=== PATIENT | male | born 1970 | race African-American/Black ===

== ENCOUNTER 2019-04-01 11:58 | Inpatient (IN) | payer MEDICAID, OTHER ==
[~2019-04-01] VITALS: Ht 172.7 cm; Wt 79.4 kg
[2019-04-01] MEDS ORDERED: MORPHINE SULFATE 4 MG/ML CPJ (NOT FOR IM USE) IV STA (13:12)
[2019-04-01] MEDS ORDERED: ONDANSETRON HCL 4MG/2ML INJ IV STA (13:12)
[2019-04-01] MEDS ORDERED: VANCOMYCIN 1 G PREMIX 200 ML IV ONE (13:15)
[2019-04-01] MEDS ORDERED: SODIUM CHLORIDE 0.9% 1000ML BAG (SEPSIS BOLUS) IV ONE (13:15)
[2019-04-01] MEDS ORDERED: PIPERACILLIN/TAZ 3.375G PREMIX 50 ML IV ONE (13:15)
[2019-04-01 13:33] LABS: HEMATOCRIT. 29.8 % (42.0-52.0); HEMOGLOBIN. 9.2 g/dL (14.0-18.0); MEAN CORPUSCULAR HEMOGLOBIN 23.9 pg (28.0-32.0); MEAN CORPUSCULAR VOLUME 77.7 fL (80.0-94.0); MEAN PLATELET VOLUME 7.6 fl (7.4-10.4); PLATELET 585 x1000/uL (130-400); RED BLOOD CELL COUNT 3.84 mill/uL (4.7-6.1); RED CELL DISTRIBUTION WIDTH 16.7 % (11.6-14.6)
[2019-04-01 13:38] LABS: INR 1.3; PROTHROMBIN TIME 13.5 sec (9.6-11.0)
[2019-04-01 14:10] LABS: PLATELET ESTIMATE INCREASED
[2019-04-01 15:21] LABS: CHLORIDE 96 mEq/L (98-107)
[2019-04-01] MEDS ORDERED: DEXTROSE 50% WATER 50ML SYRINGE IV ONE ×5 (15:44→17:15)
[2019-04-01] MEDS ORDERED: IOHEXOL-350 100 ML BOTTLE ONE (16:49)
[2019-04-01] MEDS ORDERED: DEXTROSE 50% WATER 50ML SYRINGE IV PRN (21:00)
[2019-04-01] MEDS ORDERED: MAGNESIUM/ALUMINUM HYDROXIDE/SIMETHICONE 30ML UDC PO PRN (21:00)
[2019-04-01] MEDS ORDERED: DOCUSATE SODIUM 100MG CAPSULE PO PRN (21:00)
[2019-04-01] MEDS ORDERED: NA PHOS,M-B/NA PHOS,DI-BA ENEMA 118ML PR PRN (21:00)
[2019-04-01] MEDS ORDERED: VANCOMYCIN 1 G PREMIX 200 ML IV SCH (21:00)
[2019-04-01] MEDS ORDERED: ACETAMINOPHEN 650MG SUPP PR PRN (21:00)
[2019-04-01] MEDS ORDERED: GUAIFENESIN 200MG/10ML SUGAR FREE UDC PO PRN (21:00)
[2019-04-01] MEDS ORDERED: ENOXAPARIN 40MG/0.4ML SYR SUBCUT SCH (21:00)
[2019-04-01] MEDS ORDERED: DIPHENHYDRAMINE 50MG/ML VIAL IV PRN (21:00)
[2019-04-01] MEDS ORDERED: CLONIDINE 0.1MG TABLET PO PRN (21:00)
[2019-04-01] MEDS ORDERED: ONDANSETRON HCL 4MG/2ML INJ IV PRN (21:00)
[2019-04-01] MEDS ORDERED: HYDROCODONE/ACETAMINOPHEN 10/325MG TABLET PO PRN (21:00)
[2019-04-01] MEDS ORDERED: HYDROCODONE/APAP 7.5/325MG 1 TAB TABLET PO PRN (21:00)
[2019-04-01] MEDS ORDERED: CEFTRIAXONE 1 G PREMIX 50 ML IV SCH (21:45)
[2019-04-01] MEDS: DEXT 5%/0.9% NACL 1,000 ML IV SCH (22:03)
[2019-04-01 22:14] LABS: CLARITY URINE CLEAR (CLEAR); COLOR URINE YELLOW (YELLOW); KETONES URINE 3+ (NEGATIVE); LEUKOCYTE ESTERASE URINE NEGATIVE (NEGATIVE); NITRITE URINE NEGATIVE (NEGATIVE); OCCULT BLOOD URINE NEGATIVE (NEGATIVE); PROTEIN URINE NEGATIVE (NEGATIVE); SPECIFIC GRAVITY URINE 1.048 (1.005-1.030)
[2019-04-02] VITALS (9 sets, daily range): BP systolic 109–153; BP diastolic 57–75
[2019-04-02 07:17] LABS: BASOPHILS % 0.2 % (0.0-2.0); HEMOGLOBIN. 7.7 g/dL (14.0-18.0); LYMPHOCYTES % 13.9 % (20.0-50.0); MEAN CORPUSCULAR HEMOGLOBIN 23.2 pg (28.0-32.0); MEAN CORPUSCULAR VOLUME 75.1 fL (80.0-94.0); MEAN PLATELET VOLUME 6.4 fl (7.4-10.4); MONOCYTES % 4.3 % (2.0-8.0); NEUTROPHILS % 81.6 % (40.0-76.0); PLATELET 443 x1000/uL (130-400); RED BLOOD CELL COUNT 3.33 mill/uL (4.7-6.1); RED CELL DISTRIBUTION WIDTH 16.4 % (11.6-14.6)
[2019-04-02 07:25] LABS: CHLORIDE 107 mEq/L (98-107)
[2019-04-02 07:35] LABS: HDL CHOLESTEROL 12 mg/dL (40-59)
[2019-04-02 07:38] LABS: LDL CHOLESTEROL 37 mg/dL (5-100)
[2019-04-02] MEDS: INSULIN LISPRO 100 UNITS/ML SUBCUT SCH ×5 (08:16→20:59)
[2019-04-02] MEDS ORDERED: ENOXAPARIN 30MG/0.3ML SYR SUBCUT SCH (10:00)
[2019-04-02] MEDS: BLOOD SUGAR DIAGNOSTIC STRIP TEST SCH ×3 (12:30→20:54)
[2019-04-02] MEDS: DEXT 5%/0.9% NACL 1,000 ML IV SCH (13:40)
[2019-04-02] MEDS: VANCOMYCIN 1 G PREMIX 200 ML IV SCH ×2 (13:42→20:53)
[2019-04-02] MEDS ORDERED: CEFTRIAXONE 1 G PREMIX 50 ML IV SCH (22:00)
[2019-04-03] VITALS (13 sets, daily range): BP systolic 111–132; BP diastolic 50–76
[2019-04-03] MEDS: ACETAMINOPHEN 650MG/20.3ML UDC GT PRN ×2 (00:47→11:25)
[2019-04-03] MEDS: DEXT 5%/0.9% NACL 1,000 ML IV SCH ×2 (03:56→15:42)
[2019-04-03] MEDS: VANCOMYCIN 1 G PREMIX 200 ML IV SCH (03:56)
[2019-04-03] MEDS: BLOOD SUGAR DIAGNOSTIC STRIP TEST SCH ×4 (07:48→21:00)
[2019-04-03] MEDS: INSULIN LISPRO 100 UNITS/ML SUBCUT SCH ×4 (08:00→21:00)
[2019-04-03] MEDS ORDERED: ENOXAPARIN 40MG/0.4ML SYR SUBCUT SCH (09:00)
[2019-04-03 12:09] LABS: BASOPHILS % 0.2 % (0.0-2.0); EOSINOPHILS % 0.2 % (0.0-5.0); HEMATOCRIT. 22.9 % (42.0-52.0); HEMOGLOBIN. 7.2 g/dL (14.0-18.0); LYMPHOCYTES % 14.4 % (20.0-50.0); MEAN CORPUSCULAR HEMOGLOBIN 23.5 pg (28.0-32.0); MEAN CORPUSCULAR VOLUME 75.2 fL (80.0-94.0); MEAN PLATELET VOLUME 6.6 fl (7.4-10.4); MONOCYTES % 6.4 % (2.0-8.0); NEUTROPHILS % 78.8 % (40.0-76.0); PLATELET 384 x1000/uL (130-400); RED BLOOD CELL COUNT 3.04 mill/uL (4.7-6.1); RED CELL DISTRIBUTION WIDTH 16.8 % (11.6-14.6)
[2019-04-03 12:16] LABS: CHLORIDE 108 mEq/L (98-107); CHLORIDE 109 mEq/L (98-107)
[2019-04-03 12:23] LABS: VANCOMYCIN TROUGH 13.5 ug/mL (5.0-10.0)
[2019-04-03] MEDS: SODIUM CHLORIDE 0.9% INJ 3ML FLUSH IVF SCH ×2 (14:20→21:44)
[2019-04-03] MEDS: VANCOMYCIN 1250MG in DEXTROSE 5% WATER 250ML IV SCH ×2 (14:29→21:44)
[2019-04-03] MEDS: CEFTRIAXONE 1 G PREMIX 50 ML IV SCH (21:01)
[2019-04-04] VITALS (12 sets, daily range): BP systolic 133–160; BP diastolic 80–99
[2019-04-04] MEDS: VANCOMYCIN 1250MG in DEXTROSE 5% WATER 250ML IV SCH ×2 (05:54→15:00)
[2019-04-04] MEDS: SODIUM CHLORIDE 0.9% INJ 3ML FLUSH IVF SCH ×2 (05:55→13:56)
[2019-04-04] MEDS: DEXT 5%/0.9% NACL 1,000 ML IV SCH ×2 (05:55→15:06)
[2019-04-04] MEDS: INSULIN LISPRO 100 UNITS/ML SUBCUT SCH ×4 (08:00→21:00)
[2019-04-04] MEDS: BLOOD SUGAR DIAGNOSTIC STRIP TEST SCH ×4 (08:29→21:00)
[2019-04-04 12:37] LABS: BASOPHILS % 0.1 % (0.0-2.0); EOSINOPHILS % 0.3 % (0.0-5.0); HEMATOCRIT. 26.6 % (42.0-52.0); HEMOGLOBIN. 8.2 g/dL (14.0-18.0); LYMPHOCYTES % 12.2 % (20.0-50.0); MEAN CORPUSCULAR HEMOGLOBIN 23.4 pg (28.0-32.0); MEAN PLATELET VOLUME 6.6 fl (7.4-10.4); MONOCYTES % 6.5 % (2.0-8.0); NEUTROPHILS % 80.9 % (40.0-76.0); PLATELET 383 x1000/uL (130-400); RED CELL DISTRIBUTION WIDTH 16.9 % (11.6-14.6)
[2019-04-04 12:54] LABS: CHLORIDE 108 mEq/L (98-107)
[2019-04-04] MEDS: ACETAMINOPHEN 650MG/20.3ML UDC GT PRN (18:27)
[2019-04-04] MEDS: CEFTRIAXONE 1 G PREMIX 50 ML IV SCH (21:03)
[2019-04-05] VITALS (9 sets, daily range): BP systolic 130–153; BP diastolic 68–97
[2019-04-05] MEDS: SODIUM CHLORIDE 0.9% INJ 3ML FLUSH IVF SCH ×4 (00:16→22:39)
[2019-04-05] MEDS: VANCOMYCIN 1250MG in DEXTROSE 5% WATER 250ML IV SCH ×4 (00:21→23:33)
[2019-04-05] MEDS: DEXT 5%/0.9% NACL 1,000 ML IV SCH ×2 (05:51→18:48)
[2019-04-05 06:22] LABS: BASOPHILS % 0.1 % (0.0-2.0); EOSINOPHILS % 0.4 % (0.0-5.0); HEMATOCRIT. 24.8 % (42.0-52.0); HEMOGLOBIN. 7.8 g/dL (14.0-18.0); LYMPHOCYTES % 13.1 % (20.0-50.0); MEAN CORPUSCULAR HEMOGLOBIN 23.9 pg (28.0-32.0); MEAN CORPUSCULAR VOLUME 75.5 fL (80.0-94.0); MEAN PLATELET VOLUME 7.3 fl (7.4-10.4); MONOCYTES % 7.9 % (2.0-8.0); NEUTROPHILS % 78.5 % (40.0-76.0); PLATELET 369 x1000/uL (130-400); RED BLOOD CELL COUNT 3.28 mill/uL (4.7-6.1); RED CELL DISTRIBUTION WIDTH 16.9 % (11.6-14.6)
[2019-04-05 07:12] LABS: CHLORIDE 104 mEq/L (98-107)
[2019-04-05 07:23] LABS: VANCOMYCIN TROUGH 21.3 ug/mL (5.0-10.0)
[2019-04-05] MEDS: BLOOD SUGAR DIAGNOSTIC STRIP TEST SCH ×4 (07:38→21:00)
[2019-04-05] MEDS: INSULIN LISPRO 100 UNITS/ML SUBCUT SCH ×4 (08:00→21:00)
[2019-04-05] MEDS: AMLODIPINE 10MG TABLET PO SCH (18:47)
[2019-04-05] MEDS ORDERED: POTASSIUM CHLORIDE 20MEQ TABLET SR PO NR (20:00)
[2019-04-05] MEDS: CEFTRIAXONE 1 G PREMIX 50 ML IV SCH (22:38)
[2019-04-06] VITALS: BP 131/90
[2019-04-06 04:00] VITALS: BP 153/83
[2019-04-06] MEDS: VANCOMYCIN 1250MG in DEXTROSE 5% WATER 250ML IV SCH ×3 (06:22→21:23)
[2019-04-06] MEDS: SODIUM CHLORIDE 0.9% INJ 3ML FLUSH IVF SCH ×3 (06:22→21:23)
[2019-04-06] MEDS: BLOOD SUGAR DIAGNOSTIC STRIP TEST SCH ×4 (07:50→21:23)
[2019-04-06] MEDS: DEXT 5%/0.9% NACL 1,000 ML IV SCH ×2 (07:56→21:23)
[2019-04-06 08:00] VITALS: BP 147/64
[2019-04-06] MEDS: INSULIN LISPRO 100 UNITS/ML SUBCUT SCH ×4 (08:00→21:00)
[2019-04-06] MEDS: AMLODIPINE 10MG TABLET PO SCH (08:54)
[2019-04-06] MEDS: ASPIRIN 81MG TABLET PO SCH (08:54)
[2019-04-06 12:00] VITALS: BP 146/84
[2019-04-06 16:00] VITALS: BP 140/80
[2019-04-06 20:00] VITALS: BP 158/94
[2019-04-06] MEDS: CEFTRIAXONE 1 G PREMIX 50 ML IV SCH (21:22)
[2019-04-07] VITALS: BP 143/93
[2019-04-07 04:00] VITALS: BP 151/82
[2019-04-07] MEDS: VANCOMYCIN 1250MG in DEXTROSE 5% WATER 250ML IV SCH ×3 (05:22→23:02)
[2019-04-07] MEDS: SODIUM CHLORIDE 0.9% INJ 3ML FLUSH IVF SCH ×3 (05:22→23:03)
[2019-04-07] MEDS: BLOOD SUGAR DIAGNOSTIC STRIP TEST SCH ×4 (07:30→21:00)
[2019-04-07 08:00] VITALS: BP 152/87
[2019-04-07] MEDS: INSULIN LISPRO 100 UNITS/ML SUBCUT SCH ×4 (08:00→23:02)
[2019-04-07] MEDS: ASPIRIN 81MG TABLET PO SCH (09:36)
[2019-04-07] MEDS: AMLODIPINE 10MG TABLET PO SCH (09:36)
[2019-04-07] MEDS: DEXT 5%/0.9% NACL 1,000 ML IV SCH ×2 (09:36→23:03)
[2019-04-07 12:00] VITALS: BP 147/87
[2019-04-07 16:00] VITALS: BP 156/92
[2019-04-07 20:22] VITALS: BP 152/89
[2019-04-07] MEDS: CEFTRIAXONE 1 G PREMIX 50 ML IV SCH (23:01)
[2019-04-08] VITALS (7 sets, daily range): BP systolic 126–160; BP diastolic 76–93
[2019-04-08] MEDS: SODIUM CHLORIDE 0.9% INJ 3ML FLUSH IVF SCH ×3 (06:20→22:00)
[2019-04-08] MEDS: VANCOMYCIN 1250MG in DEXTROSE 5% WATER 250ML IV SCH ×2 (06:20→13:43)
[2019-04-08 07:11] LABS: CHLORIDE 101 mEq/L (98-107)
[2019-04-08] MEDS: INSULIN LISPRO 100 UNITS/ML SUBCUT SCH ×4 (08:00→21:00)
[2019-04-08] MEDS: BLOOD SUGAR DIAGNOSTIC STRIP TEST SCH ×4 (08:06→21:00)
[2019-04-08] MEDS: AMLODIPINE 10MG TABLET PO SCH (08:51)
[2019-04-08] MEDS: ASPIRIN 81MG TABLET PO SCH (08:51)
[2019-04-08] MEDS: DEXT 5%/0.9% NACL 1,000 ML IV SCH (13:32)
[2019-04-08 15:43] LABS: BASOPHILS % 0.6 % (0.0-2.0); EOSINOPHILS % 0.4 % (0.0-5.0); HEMATOCRIT. 24.3 % (42.0-52.0); HEMOGLOBIN. 7.8 g/dL (14.0-18.0); LYMPHOCYTES % 13.2 % (20.0-50.0); MEAN CORPUSCULAR HEMOGLOBIN 23.9 pg (28.0-32.0); MEAN CORPUSCULAR VOLUME 74.1 fL (80.0-94.0); MEAN PLATELET VOLUME 6.9 fl (7.4-10.4); MONOCYTES % 8.1 % (2.0-8.0); NEUTROPHILS % 77.7 % (40.0-76.0); PLATELET 351 x1000/uL (130-400); RED BLOOD CELL COUNT 3.27 mill/uL (4.7-6.1); RED CELL DISTRIBUTION WIDTH 17.2 % (11.6-14.6)
[2019-04-08 16:06] LABS: CHLORIDE 101 mEq/L (98-107)
[2019-04-08] MEDS: ACETAMINOPHEN 650MG/20.3ML UDC GT PRN (17:01)
[2019-04-08] MEDS ORDERED: POTASSIUM CHLORIDE 20MEQ TABLET SR PO NR (17:45)
[2019-04-08] MEDS: CEFTRIAXONE 1 G PREMIX 50 ML IV SCH (21:36)
[2019-04-09] VITALS: BP 120/80
[2019-04-09] MEDS: VANCOMYCIN 1250MG in DEXTROSE 5% WATER 250ML IV SCH ×4 (03:04→21:34)
[2019-04-09] MEDS: DEXT 5%/0.9% NACL 1,000 ML IV SCH ×2 (03:09→15:41)
[2019-04-09 04:00] VITALS: BP 147/99
[2019-04-09] MEDS: BLOOD SUGAR DIAGNOSTIC STRIP TEST SCH ×4 (06:41→20:40)
[2019-04-09] MEDS: SODIUM CHLORIDE 0.9% INJ 3ML FLUSH IVF SCH ×3 (06:45→21:35)
[2019-04-09] MEDS: INSULIN LISPRO 100 UNITS/ML SUBCUT SCH ×4 (06:46→21:00)
[2019-04-09 08:00] VITALS: BP 136/85
[2019-04-09] MEDS: AMLODIPINE 10MG TABLET PO SCH (08:49)
[2019-04-09] MEDS: ASPIRIN 81MG TABLET PO SCH (08:49)
[2019-04-09 12:00] VITALS: BP 133/70
[2019-04-09 16:00] VITALS: BP 147/86
[2019-04-09] MEDS: ACETAMINOPHEN 650MG/20.3ML UDC GT PRN (17:27)
[2019-04-09 20:00] VITALS: BP 125/74
[2019-04-10] VITALS: BP 141/90
[2019-04-10 04:00] VITALS: BP 145/83
[2019-04-10] MEDS: SODIUM CHLORIDE 0.9% INJ 3ML FLUSH IVF SCH ×3 (05:55→21:13)
[2019-04-10] MEDS: VANCOMYCIN 1250MG in DEXTROSE 5% WATER 250ML IV SCH ×3 (05:55→21:12)
[2019-04-10] MEDS: DEXT 5%/0.9% NACL 1,000 ML IV SCH ×2 (05:55→18:17)
[2019-04-10] MEDS: INSULIN LISPRO 100 UNITS/ML SUBCUT SCH ×4 (06:14→21:00)
[2019-04-10] MEDS: BLOOD SUGAR DIAGNOSTIC STRIP TEST SCH ×4 (06:14→21:00)
[2019-04-10 07:33] LABS: CHLORIDE 100 mEq/L (98-107)
[2019-04-10 08:00] VITALS: BP 140/78
[2019-04-10] MEDS: ASPIRIN 81MG TABLET PO SCH (08:48)
[2019-04-10] MEDS: AMLODIPINE 10MG TABLET PO SCH (08:48)
[2019-04-10 12:00] VITALS: BP 134/78
[2019-04-10 16:00] VITALS: BP 120/71
[2019-04-10 20:00] VITALS: BP 120/73
[2019-04-10] MEDS: ACETAMINOPHEN 650MG/20.3ML UDC GT PRN (20:53)
[2019-04-11] VITALS: BP 118/72
[2019-04-11 04:00] VITALS: BP 134/84
[2019-04-11] MEDS: VANCOMYCIN 1250MG in DEXTROSE 5% WATER 250ML IV SCH ×4 (05:14→22:32)
[2019-04-11] MEDS: ACETAMINOPHEN 650MG/20.3ML UDC GT PRN (05:14)
[2019-04-11] MEDS: SODIUM CHLORIDE 0.9% INJ 3ML FLUSH IVF SCH ×3 (06:21→22:33)
[2019-04-11] MEDS: BLOOD SUGAR DIAGNOSTIC STRIP TEST SCH ×4 (07:30→20:23)
[2019-04-11] MEDS: INSULIN LISPRO 100 UNITS/ML SUBCUT SCH ×4 (07:30→20:33)
[2019-04-11 08:00] VITALS: BP 129/78
[2019-04-11] MEDS: AMLODIPINE 10MG TABLET PO SCH (09:30)
[2019-04-11] MEDS: ASPIRIN 81MG TABLET PO SCH (09:30)
[2019-04-11 12:00] VITALS: BP 116/71
[2019-04-11 16:00] VITALS: BP 119/73
[2019-04-11 20:00] VITALS: BP 124/77
[2019-04-12] VITALS: BP 125/76
[2019-04-12 00:50] LABS: BASOPHILS % 0.8 % (0.0-2.0); EOSINOPHILS % 0.7 % (0.0-5.0); HEMATOCRIT. 22.8 % (42.0-52.0); HEMOGLOBIN. 7.2 g/dL (14.0-18.0); LYMPHOCYTES % 18.7 % (20.0-50.0); MEAN CORPUSCULAR HEMOGLOBIN 23.4 pg (28.0-32.0); MEAN CORPUSCULAR VOLUME 73.6 fL (80.0-94.0); MEAN PLATELET VOLUME 6.5 fl (7.4-10.4); MONOCYTES % 6.8 % (2.0-8.0); PLATELET 450 x1000/uL (130-400); RED CELL DISTRIBUTION WIDTH 17.2 % (11.6-14.6)
[2019-04-12 00:56] LABS: CHLORIDE 103 mEq/L (98-107)
[2019-04-12 04:00] VITALS: BP 127/84
[2019-04-12] MEDS: SODIUM CHLORIDE 0.9% INJ 3ML FLUSH IVF SCH ×3 (05:37→22:31)
[2019-04-12] MEDS: VANCOMYCIN 1250MG in DEXTROSE 5% WATER 250ML IV SCH ×3 (05:37→22:24)
[2019-04-12 07:23] LABS: BASOPHILS % 0.7 % (0.0-2.0); EOSINOPHILS % 0.7 % (0.0-5.0); HEMATOCRIT. 24.9 % (42.0-52.0); HEMOGLOBIN. 7.8 g/dL (14.0-18.0); LYMPHOCYTES % 19.8 % (20.0-50.0); MEAN CORPUSCULAR HEMOGLOBIN 23.3 pg (28.0-32.0); MEAN CORPUSCULAR VOLUME 74.1 fL (80.0-94.0); MEAN PLATELET VOLUME 7.2 fl (7.4-10.4); MONOCYTES % 8.2 % (2.0-8.0); NEUTROPHILS % 70.6 % (40.0-76.0); PLATELET 489 x1000/uL (130-400); RED BLOOD CELL COUNT 3.36 mill/uL (4.7-6.1); RED CELL DISTRIBUTION WIDTH 17.5 % (11.6-14.6)
[2019-04-12] MEDS: BLOOD SUGAR DIAGNOSTIC STRIP TEST SCH ×4 (07:37→21:00)
[2019-04-12] MEDS: INSULIN LISPRO 100 UNITS/ML SUBCUT SCH ×4 (07:38→21:00)
[2019-04-12 08:00] VITALS: BP 123/80
[2019-04-12] MEDS: ASPIRIN 81MG TABLET PO SCH (09:40)
[2019-04-12] MEDS: AMLODIPINE 10MG TABLET PO SCH (09:40)
[2019-04-12] MEDS ORDERED: POTASSIUM CHLORIDE 20MEQ TABLET SR PO NR (11:00)
[2019-04-12] MEDS ORDERED: ASPI-1160 PO (11:01)
[2019-04-12] MEDS ORDERED: AMLO10TA80 PO (11:01)
[2019-04-12 12:00] VITALS: BP 127/83
[2019-04-12 16:00] VITALS: BP 109/59
[2019-04-12 20:00] VITALS: BP 108/70
[2019-04-13] VITALS: BP 122/73
[2019-04-13 04:00] VITALS: BP 140/64
[2019-04-13] MEDS: VANCOMYCIN 1250MG in DEXTROSE 5% WATER 250ML IV SCH ×3 (06:09→21:15)
[2019-04-13] MEDS: SODIUM CHLORIDE 0.9% INJ 3ML FLUSH IVF SCH ×3 (06:09→21:16)
[2019-04-13] MEDS: INSULIN LISPRO 100 UNITS/ML SUBCUT SCH ×4 (06:17→21:00)
[2019-04-13] MEDS: BLOOD SUGAR DIAGNOSTIC STRIP TEST SCH ×4 (06:17→21:15)
[2019-04-13 08:00] VITALS: BP 124/78
[2019-04-13] MEDS: ASPIRIN 81MG TABLET PO SCH (08:49)
[2019-04-13] MEDS: AMLODIPINE 10MG TABLET PO SCH (08:50)
[2019-04-13 12:00] VITALS: BP 108/71
[2019-04-13 16:00] VITALS: BP 103/61
[2019-04-13 20:00] VITALS: BP 107/68
[2019-04-14] VITALS: BP 118/69
[2019-04-14 04:00] VITALS: BP 129/77
[2019-04-14] MEDS: VANCOMYCIN 1250MG in DEXTROSE 5% WATER 250ML IV SCH ×3 (06:04→22:36)
[2019-04-14] MEDS: SODIUM CHLORIDE 0.9% INJ 3ML FLUSH IVF SCH ×3 (06:04→22:36)
[2019-04-14] MEDS: INSULIN LISPRO 100 UNITS/ML SUBCUT SCH ×4 (07:42→21:00)
[2019-04-14] MEDS: BLOOD SUGAR DIAGNOSTIC STRIP TEST SCH ×4 (07:42→21:00)
[2019-04-14 08:00] VITALS: BP 113/73
[2019-04-14] MEDS: ASPIRIN 81MG TABLET PO SCH (08:53)
[2019-04-14] MEDS: AMLODIPINE 10MG TABLET PO SCH (08:53)
[2019-04-14 12:00] VITALS: BP 112/72
[2019-04-14 16:00] VITALS: BP 115/71
[2019-04-14 20:00] VITALS: BP 104/65
[2019-04-15] VITALS: BP 123/81
[2019-04-15 04:00] VITALS: BP 104/61
[2019-04-15] MEDS: VANCOMYCIN 1250MG in DEXTROSE 5% WATER 250ML IV SCH ×3 (05:53→21:14)
[2019-04-15] MEDS: SODIUM CHLORIDE 0.9% INJ 3ML FLUSH IVF SCH ×3 (05:53→21:14)
[2019-04-15] MEDS: BLOOD SUGAR DIAGNOSTIC STRIP TEST SCH ×4 (07:31→21:25)
[2019-04-15] MEDS: INSULIN LISPRO 100 UNITS/ML SUBCUT SCH ×4 (07:31→21:00)
[2019-04-15 08:00] VITALS: BP 103/58
[2019-04-15] MEDS: AMLODIPINE 10MG TABLET PO SCH (09:00)
[2019-04-15] MEDS: ASPIRIN 81MG TABLET PO SCH (09:50)
[2019-04-15 12:00] VITALS: BP 103/63
[2019-04-15 16:00] VITALS: BP 104/63
[2019-04-15 20:00] VITALS: BP 127/71
[2019-04-15 21:26] LABS: MEAN CORPUSCULAR HEMOGLOBIN 22.8 pg (28.0-32.0); MEAN CORPUSCULAR VOLUME 72.2 fL (80.0-94.0); MEAN PLATELET VOLUME 6.5 fl (7.4-10.4); PLATELET 557 x1000/uL (130-400); RED BLOOD CELL COUNT 2.89 mill/uL (4.7-6.1); RED CELL DISTRIBUTION WIDTH 17.1 % (11.6-14.6)
[2019-04-15 21:31] LABS: HEMATOCRIT. 20.8 % (42.0-52.0); HEMOGLOBIN. 6.6 g/dL (14.0-18.0)
[2019-04-15 21:57] LABS: PLATELET ESTIMATE INCREASED
[2019-04-15 22:05] LABS: CHLORIDE 103 mEq/L (98-107)
[2019-04-16] VITALS (12 sets, daily range): BP systolic 95–127; BP diastolic 59–71
[2019-04-16] MEDS: SODIUM CHLORIDE 0.9% INJ 3ML FLUSH IVF SCH ×3 (05:27→23:29)
[2019-04-16] MEDS: BLOOD SUGAR DIAGNOSTIC STRIP TEST SCH ×3 (06:22→17:20)
[2019-04-16] MEDS: INSULIN LISPRO 100 UNITS/ML SUBCUT SCH ×3 (07:28→17:50)
[2019-04-16] MEDS: AMLODIPINE 10MG TABLET PO SCH (08:13)
[2019-04-16] MEDS: ASPIRIN 81MG TABLET PO SCH (08:13)
[2019-04-16 14:05] LABS: HEMOGLOBIN 8.7 g/dL (14.0-18.0)
[2019-04-16] MEDS: ACETAMINOPHEN 650MG/20.3ML UDC GT PRN (21:22)
[2019-04-16] MEDS ORDERED: SODIUM CHLORIDE 0.9% 100 ML IV NR (21:45)
[2019-04-16] MEDS ORDERED: PIPERACILLIN/TAZOBACTAM 3.375 G/VIAL IV SCH (22:00)
[2019-04-16] MEDS ORDERED: VANCOMYCIN 2,000 MG in DEXT 5% WATER 500 ML IV SCH (23:00)
[2019-04-16 23:33] LABS: BASOPHILS % 0.9 % (0.0-2.0); EOSINOPHILS % 1.2 % (0.0-5.0); HEMOGLOBIN. 8.5 g/dL (14.0-18.0); LYMPHOCYTES % 19.1 % (20.0-50.0); MEAN CORPUSCULAR HEMOGLOBIN 23.7 pg (28.0-32.0); MEAN CORPUSCULAR VOLUME 72.9 fL (80.0-94.0); MEAN PLATELET VOLUME 6.6 fl (7.4-10.4); MONOCYTES % 13.8 % (2.0-8.0); PLATELET 650 x1000/uL (130-400); RED BLOOD CELL COUNT 3.57 mill/uL (4.7-6.1); RED CELL DISTRIBUTION WIDTH 17.7 % (11.6-14.6)
[2019-04-17] VITALS: BP 99/52
[2019-04-17] MEDS ORDERED: DIGOXIN 500MCG/2ML AMP IV NR (00:15)
[2019-04-17] MEDS: PIPERACILLIN/TAZOBACTAM 3.375 G in DEXT 5% WATER 100 ML IV SCH ×4 (03:50→20:26)
[2019-04-17 04:00] VITALS: BP 113/70
[2019-04-17] MEDS: SODIUM CHLORIDE 0.9% INJ 3ML FLUSH IVF SCH ×3 (05:16→22:24)
[2019-04-17] MEDS: BLOOD SUGAR DIAGNOSTIC STRIP TEST SCH ×4 (06:22→20:17)
[2019-04-17] MEDS: VANCOMYCIN 1250MG in DEXTROSE 5% WATER 250ML IV SCH ×3 (06:46→22:24)
[2019-04-17] MEDS: INSULIN LISPRO 100 UNITS/ML SUBCUT SCH ×4 (07:35→21:00)
[2019-04-17 08:00] VITALS: BP 104/62
[2019-04-17] MEDS: AMLODIPINE 10MG TABLET PO SCH (09:00)
[2019-04-17] MEDS: ASPIRIN 81MG TABLET PO SCH (09:25)
[2019-04-17 12:00] VITALS: BP 104/62
[2019-04-17 16:00] VITALS: BP 121/75
[2019-04-17 20:22] VITALS: BP 109/76
[2019-04-18] VITALS: BP 118/70
[2019-04-18 04:46] VITALS: BP 118/70
[2019-04-18] MEDS: PIPERACILLIN/TAZOBACTAM 3.375 G in DEXT 5% WATER 100 ML IV SCH ×3 (05:15→22:18)
[2019-04-18] MEDS: SODIUM CHLORIDE 0.9% INJ 3ML FLUSH IVF SCH ×3 (06:51→22:35)
[2019-04-18] MEDS: VANCOMYCIN 1250MG in DEXTROSE 5% WATER 250ML IV SCH (06:58)
[2019-04-18] MEDS: BLOOD SUGAR DIAGNOSTIC STRIP TEST SCH ×4 (07:00→21:00)
[2019-04-18 07:07] LABS: CHLORIDE 106 mEq/L (98-107)
[2019-04-18 07:18] LABS: VANCOMYCIN TROUGH 26.6 ug/mL (5.0-10.0)
[2019-04-18 07:20] LABS: BASOPHILS % 0.9 % (0.0-2.0); EOSINOPHILS % 2.4 % (0.0-5.0); HEMATOCRIT. 23.3 % (42.0-52.0); HEMOGLOBIN. 7.5 g/dL (14.0-18.0); LYMPHOCYTES % 14.9 % (20.0-50.0); MEAN CORPUSCULAR HEMOGLOBIN 23.7 pg (28.0-32.0); MEAN CORPUSCULAR VOLUME 73.8 fL (80.0-94.0); MEAN PLATELET VOLUME 6.6 fl (7.4-10.4); MONOCYTES % 13.9 % (2.0-8.0); NEUTROPHILS % 67.9 % (40.0-76.0); PLATELET 629 x1000/uL (130-400); RED BLOOD CELL COUNT 3.16 mill/uL (4.7-6.1); RED CELL DISTRIBUTION WIDTH 17.5 % (11.6-14.6)
[2019-04-18] MEDS: INSULIN LISPRO 100 UNITS/ML SUBCUT SCH ×4 (07:32→21:00)
[2019-04-18 08:00] VITALS: BP 126/71
[2019-04-18] MEDS: AMLODIPINE 10MG TABLET PO SCH (09:45)
[2019-04-18] MEDS: ASPIRIN 81MG TABLET PO SCH (09:45)
[2019-04-18 12:00] VITALS: BP 115/64
[2019-04-18 16:00] VITALS: BP 115/61
[2019-04-18] MEDS: VANCOMYCIN 1500MG in DEXTROSE 5% WATER 250ML IV SCH (17:46)
[2019-04-18 20:19] VITALS: BP 120/73
[2019-04-19 00:42] VITALS: BP 107/69
[2019-04-19 04:00] VITALS: BP 93/60
[2019-04-19] MEDS: PIPERACILLIN/TAZOBACTAM 3.375 G in DEXT 5% WATER 100 ML IV SCH ×3 (05:02→21:33)
[2019-04-19] MEDS: SODIUM CHLORIDE 0.9% INJ 3ML FLUSH IVF SCH ×3 (05:43→21:34)
[2019-04-19] MEDS: INSULIN LISPRO 100 UNITS/ML SUBCUT SCH ×4 (06:46→21:00)
[2019-04-19] MEDS: VANCOMYCIN 1500MG in DEXTROSE 5% WATER 250ML IV SCH ×2 (06:46→17:21)
[2019-04-19] MEDS: BLOOD SUGAR DIAGNOSTIC STRIP TEST SCH ×4 (06:46→21:30)
[2019-04-19] MEDS ORDERED: DIGOXIN 125MCG TABLET PO NR ×2 (08:00→18:30)
[2019-04-19 08:03] VITALS: BP 88/62
[2019-04-19] MEDS: ASPIRIN 81MG TABLET PO SCH (08:17)
[2019-04-19] MEDS: AMLODIPINE 10MG TABLET PO SCH (08:17)
[2019-04-19] MEDS ORDERED: SODIUM CHLORIDE 0.9% 500 ML IV ONE (11:00)
[2019-04-19 12:24] VITALS: BP 91/54
[2019-04-19 14:28] LABS: CHLORIDE 105 mEq/L (98-107); HEMATOCRIT 25.5 % (42.0-52.0); MEAN CORPUSCULAR HEMOGLOBIN 23.3 pg (28.0-32.0); MEAN CORPUSCULAR VOLUME 74.4 fL (80.0-94.0); PLATELET 668 x1000/uL (130-400); RED BLOOD CELL COUNT 3.43 mill/uL (4.7-6.1); RED CELL DISTRIBUTION WIDTH 18.6 % (11.6-14.6)
[2019-04-19] MEDS ORDERED: POTASSIUM CHLORIDE 20MEQ TABLET SR PO NR (16:00)
[2019-04-19 16:02] VITALS: BP 94/55
[2019-04-19] MEDS ORDERED: SODIUM CHLORIDE 0.9% 500 ML IV NR (18:30)
[2019-04-19 20:00] VITALS: BP 104/68
[2019-04-19] MEDS: METOPROLOL TARTRATE 25MG TABLET PO SCH (21:33)
[2019-04-20 00:24] VITALS: BP 98/61
[2019-04-20 04:00] VITALS: BP 111/59
[2019-04-20] MEDS: PIPERACILLIN/TAZOBACTAM 3.375 G in DEXT 5% WATER 100 ML IV SCH ×3 (04:02→21:02)
[2019-04-20] MEDS: SODIUM CHLORIDE 0.9% INJ 3ML FLUSH IVF SCH ×3 (05:05→21:02)
[2019-04-20] MEDS: VANCOMYCIN 1500MG in DEXTROSE 5% WATER 250ML IV SCH ×2 (05:05→17:15)
[2019-04-20] MEDS: BLOOD SUGAR DIAGNOSTIC STRIP TEST SCH ×4 (06:38→21:01)
[2019-04-20] MEDS: INSULIN LISPRO 100 UNITS/ML SUBCUT SCH ×4 (07:50→21:00)
[2019-04-20 08:35] VITALS: BP 105/66
[2019-04-20] MEDS: ASPIRIN 81MG TABLET PO SCH (08:52)
[2019-04-20] MEDS: METOPROLOL TARTRATE 25MG TABLET PO SCH (08:52)
[2019-04-20 11:59] VITALS: BP 104/60
[2019-04-20] MEDS: DIGOXIN 125MCG TABLET PO SCH (15:16)
[2019-04-20 16:00] VITALS: BP 116/68
[2019-04-20] MEDS ORDERED: DIGOXIN 500MCG/2ML AMP IV SCH (18:00)
[2019-04-20 20:00] VITALS: BP 100/50
[2019-04-20] MEDS: METOPROLOL TARTRATE 50MG TABLET PO SCH (21:03)
[2019-04-21 00:39] VITALS: BP 105/70
[2019-04-21 04:00] VITALS: BP 106/67
[2019-04-21] MEDS: PIPERACILLIN/TAZOBACTAM 3.375 G in DEXT 5% WATER 100 ML IV SCH ×3 (04:05→20:43)
[2019-04-21] MEDS: ACETAMINOPHEN 650MG/20.3ML UDC GT PRN (04:15)
[2019-04-21] MEDS: VANCOMYCIN 1500MG in DEXTROSE 5% WATER 250ML IV SCH ×2 (05:18→17:47)
[2019-04-21] MEDS: SODIUM CHLORIDE 0.9% INJ 3ML FLUSH IVF SCH ×3 (05:18→21:28)
[2019-04-21] MEDS: BLOOD SUGAR DIAGNOSTIC STRIP TEST SCH ×4 (06:29→20:43)
[2019-04-21] MEDS: INSULIN LISPRO 100 UNITS/ML SUBCUT SCH ×4 (07:49→21:00)
[2019-04-21 08:00] VITALS: BP 109/69
[2019-04-21] MEDS: ASPIRIN 81MG TABLET PO SCH (08:55)
[2019-04-21] MEDS: METOPROLOL TARTRATE 50MG TABLET PO SCH ×2 (08:55→20:43)
[2019-04-21 10:10] LABS: HEMATOCRIT. 27.2 % (42.0-52.0); HEMOGLOBIN. 8.6 g/dL (14.0-18.0); MEAN CORPUSCULAR HEMOGLOBIN 23.6 pg (28.0-32.0); MEAN CORPUSCULAR VOLUME 74.7 fL (80.0-94.0); MEAN PLATELET VOLUME 7.2 fl (7.4-10.4); PLATELET 592 x1000/uL (130-400); RED BLOOD CELL COUNT 3.64 mill/uL (4.7-6.1); RED CELL DISTRIBUTION WIDTH 18.2 % (11.6-14.6)
[2019-04-21 10:21] LABS: CHLORIDE 105 mEq/L (98-107)
[2019-04-21 10:28] LABS: PHOSPHORUS 3.5 mg/dL (2.5-4.9)
[2019-04-21 10:30] LABS: VANCOMYCIN TROUGH 41.1 ug/mL (5.0-10.0)
[2019-04-21 11:32] LABS: PLATELET ESTIMATE INCREASED
[2019-04-21 12:00] VITALS: BP 104/61
[2019-04-21 16:00] VITALS: BP 125/76
[2019-04-21] MEDS: DIGOXIN 125MCG TABLET PO SCH (17:47)
[2019-04-21 20:38] VITALS: BP 124/75
[2019-04-22] VITALS: BP 115/81
[2019-04-22] MEDS ORDERED: METOPROLOL TARTRATE 5MG/5ML VIAL IV SCH (00:42)
[2019-04-22 04:00] VITALS: BP 100/73
[2019-04-22] MEDS: SODIUM CHLORIDE 0.9% INJ 3ML FLUSH IVF SCH ×3 (05:05→21:05)
[2019-04-22] MEDS: PIPERACILLIN/TAZOBACTAM 3.375 G in DEXT 5% WATER 100 ML IV SCH ×3 (05:05→21:04)
[2019-04-22] MEDS: VANCOMYCIN 1500MG in DEXTROSE 5% WATER 250ML IV SCH ×2 (05:53→17:17)
[2019-04-22] MEDS: INSULIN LISPRO 100 UNITS/ML SUBCUT SCH ×4 (07:50→20:59)
[2019-04-22] MEDS: BLOOD SUGAR DIAGNOSTIC STRIP TEST SCH ×4 (07:58→20:59)
[2019-04-22 08:00] VITALS: BP 124/56
[2019-04-22] MEDS: METOPROLOL TARTRATE 50MG TABLET PO SCH ×2 (09:33→21:04)
[2019-04-22] MEDS: ASPIRIN 81MG TABLET PO SCH (09:33)
[2019-04-22 12:00] VITALS: BP 119/67
[2019-04-22 16:00] VITALS: BP 127/77
[2019-04-22] MEDS: DIGOXIN 125MCG TABLET PO SCH (17:21)
[2019-04-22 20:00] VITALS: BP 113/63
[2019-04-23] VITALS: BP 129/76
[2019-04-23 04:00] VITALS: BP 120/66
[2019-04-23] MEDS: PIPERACILLIN/TAZOBACTAM 3.375 G in DEXT 5% WATER 100 ML IV SCH ×3 (04:48→21:35)
[2019-04-23] MEDS: VANCOMYCIN 1500MG in DEXTROSE 5% WATER 250ML IV SCH ×2 (05:54→17:33)
[2019-04-23] MEDS: SODIUM CHLORIDE 0.9% INJ 3ML FLUSH IVF SCH ×3 (05:55→21:35)
[2019-04-23] MEDS: BLOOD SUGAR DIAGNOSTIC STRIP TEST SCH ×4 (06:23→21:34)
[2019-04-23] MEDS: INSULIN LISPRO 100 UNITS/ML SUBCUT SCH ×4 (07:50→21:00)
[2019-04-23 08:00] VITALS: BP 120/76
[2019-04-23] MEDS: ASPIRIN 81MG TABLET PO SCH (09:10)
[2019-04-23] MEDS: METOPROLOL TARTRATE 50MG TABLET PO SCH ×2 (09:10→21:00)
[2019-04-23 12:00] VITALS: BP 117/69
[2019-04-23 16:00] VITALS: BP 130/70
[2019-04-23] MEDS: DIGOXIN 125MCG TABLET PO SCH (17:33)
[2019-04-23] MEDS: ACETAMINOPHEN 650MG/20.3ML UDC GT PRN (17:36)
[2019-04-23 20:00] VITALS: BP 102/62
[2019-04-24] VITALS (7 sets, daily range): BP systolic 105–136; BP diastolic 58–78
[2019-04-24] MEDS: SODIUM CHLORIDE 0.9% INJ 3ML FLUSH IVF SCH ×3 (05:44→20:40)
[2019-04-24] MEDS: BLOOD SUGAR DIAGNOSTIC STRIP TEST SCH ×4 (06:21→20:03)
[2019-04-24] MEDS: INSULIN LISPRO 100 UNITS/ML SUBCUT SCH ×4 (07:50→20:03)
[2019-04-24] MEDS: METOPROLOL TARTRATE 50MG TABLET PO SCH ×2 (08:39→20:40)
[2019-04-24] MEDS: ASPIRIN 81MG TABLET PO SCH (08:39)
[2019-04-24] MEDS: QUETIAPINE FUMARATE 25MG TABLET PO SCH (08:40)
[2019-04-24] MEDS ORDERED: QUETIAPINE FUMARATE 25MG TABLET PO SCH (12:00)
[2019-04-24] MEDS: DIGOXIN 125MCG TABLET PO SCH (17:27)
[2019-04-24 20:43] LABS: BASOPHILS % 0.5 % (0.0-2.0); EOSINOPHILS % 1.1 % (0.0-5.0); HEMATOCRIT. 21.8 % (42.0-52.0); LYMPHOCYTES % 15.2 % (20.0-50.0); MEAN CORPUSCULAR HEMOGLOBIN 23.4 pg (28.0-32.0); MEAN CORPUSCULAR VOLUME 73.3 fL (80.0-94.0); MEAN PLATELET VOLUME 6.8 fl (7.4-10.4); MONOCYTES % 7.4 % (2.0-8.0); NEUTROPHILS % 75.8 % (40.0-76.0); PLATELET 555 x1000/uL (130-400); RED BLOOD CELL COUNT 2.98 mill/uL (4.7-6.1); RED CELL DISTRIBUTION WIDTH 18.6 % (11.6-14.6)
[2019-04-24 20:52] LABS: CHLORIDE 103 mEq/L (98-107)
[2019-04-24] MEDS ORDERED: POTASSIUM CHLORIDE 20MEQ TABLET SR PO NR (21:30)
[2019-04-24] MEDS: ACETAMINOPHEN 650MG/20.3ML UDC GT PRN (21:32)
[2019-04-25] VITALS: BP 116/66
[2019-04-25] MEDS: MEROPENEM 500 MG in SODIUM CHLORIDE 0.9% 50 ML IV SCH ×3 (00:08→17:13)
[2019-04-25 04:00] VITALS: BP 126/78
[2019-04-25] MEDS: SODIUM CHLORIDE 0.9% INJ 3ML FLUSH IVF SCH ×2 (05:20→22:00)
[2019-04-25] MEDS: BLOOD SUGAR DIAGNOSTIC STRIP TEST SCH ×4 (06:28→21:00)
[2019-04-25 06:48] LABS: HEMATOCRIT 24.2 % (42.0-52.0); HEMOGLOBIN 7.6 g/dL (14.0-18.0); MEAN CORPUSCULAR HEMOGLOBIN 23.2 pg (28.0-32.0); MEAN CORPUSCULAR VOLUME 74.1 fL (80.0-94.0); PLATELET 566 x1000/uL (130-400); RED BLOOD CELL COUNT 3.26 mill/uL (4.7-6.1); RED CELL DISTRIBUTION WIDTH 18.5 % (11.6-14.6)
[2019-04-25] MEDS: INSULIN LISPRO 100 UNITS/ML SUBCUT SCH ×4 (07:50→21:00)
[2019-04-25 08:12] VITALS: BP 129/73
[2019-04-25] MEDS: ASPIRIN 81MG TABLET PO SCH (08:17)
[2019-04-25] MEDS: QUETIAPINE FUMARATE 25MG TABLET PO SCH (08:18)
[2019-04-25] MEDS: METOPROLOL TARTRATE 50MG TABLET PO SCH (08:18)
[2019-04-25 12:06] VITALS: BP 112/54
[2019-04-25 16:25] VITALS: BP 136/94
[2019-04-25] MEDS: SODIUM CHLORIDE 0.9% 1,000 ML IV SCH (17:13)
[2019-04-25] MEDS: DIGOXIN 125MCG TABLET PO SCH (17:21)
[2019-04-25 21:34] LABS: CLARITY URINE CLEAR (CLEAR); COLOR URINE YELLOW (YELLOW); KETONES URINE NEGATIVE (NEGATIVE); LEUKOCYTE ESTERASE URINE NEGATIVE (NEGATIVE); NITRITE URINE NEGATIVE (NEGATIVE); OCCULT BLOOD URINE NEGATIVE (NEGATIVE); PH URINE 5.5 (4.5-8.0); PROTEIN URINE NEGATIVE (NEGATIVE); SPECIFIC GRAVITY URINE 1.003 (1.005-1.030); UROBILINOGEN URINE 0.2 E.U./dL (0.2-1.0)
[2019-04-25] MEDS: METOPROLOL TARTRATE 25MG TABLET PO SCH (23:03)
[2019-04-26] MEDS: SODIUM CHLORIDE 0.9% 1,000 ML IV SCH ×4 (02:22→22:24)
[2019-04-26] MEDS: MEROPENEM 500 MG in SODIUM CHLORIDE 0.9% 50 ML IV SCH ×3 (02:23→17:58)
[2019-04-26] MEDS: SODIUM CHLORIDE 0.9% INJ 3ML FLUSH IVF SCH ×3 (06:41→22:22)
[2019-04-26] MEDS: BLOOD SUGAR DIAGNOSTIC STRIP TEST SCH (06:42)
[2019-04-26 06:45] LABS: BASOPHILS % 0.5 % (0.0-2.0); EOSINOPHILS % 0.4 % (0.0-5.0); HEMATOCRIT. 24.7 % (42.0-52.0); HEMOGLOBIN. 7.6 g/dL (14.0-18.0); LYMPHOCYTES % 12.6 % (20.0-50.0); MEAN CORPUSCULAR HEMOGLOBIN 22.7 pg (28.0-32.0); MEAN CORPUSCULAR VOLUME 73.6 fL (80.0-94.0); MONOCYTES % 7.1 % (2.0-8.0); NEUTROPHILS % 79.4 % (40.0-76.0); PLATELET 575 x1000/uL (130-400); RED BLOOD CELL COUNT 3.35 mill/uL (4.7-6.1); RED CELL DISTRIBUTION WIDTH 18.5 % (11.6-14.6)
[2019-04-26] MEDS: INSULIN LISPRO 100 UNITS/ML SUBCUT SCH (07:50)
[2019-04-26 08:00] VITALS: BP_SYST 129; BP_SYST 137; BP_DIAS 74; BP_DIAS 83
[2019-04-26 08:42] LABS: CHLORIDE 105 mEq/L (98-107)
[2019-04-26 08:50] LABS: PHOSPHORUS 4.5 mg/dL (2.5-4.9)
[2019-04-26] MEDS: QUETIAPINE FUMARATE 25MG TABLET PO SCH (08:58)
[2019-04-26] MEDS: ASPIRIN 81MG TABLET PO SCH (08:58)
[2019-04-26] MEDS: METOPROLOL TARTRATE 25MG TABLET PO SCH ×2 (08:58→22:23)
[2019-04-26] MEDS ORDERED: MAGNESIUM 2 G PREMIX 50 ML IV ONE (09:30)
[2019-04-26 12:00] VITALS: BP 112/62
[2019-04-26 16:00] VITALS: BP 129/74
[2019-04-26] MEDS: DIGOXIN 125MCG TABLET PO SCH (17:58)
[2019-04-26 20:00] VITALS: BP 141/87
[2019-04-27] VITALS: BP 105/58
[2019-04-27] MEDS: MEROPENEM 500 MG in SODIUM CHLORIDE 0.9% 50 ML IV SCH ×3 (01:22→16:37)
[2019-04-27 04:00] VITALS: BP 120/64
[2019-04-27] MEDS: SODIUM CHLORIDE 0.9% INJ 3ML FLUSH IVF SCH ×3 (05:10→22:11)
[2019-04-27] MEDS: SODIUM CHLORIDE 0.9% 1,000 ML IV SCH ×3 (06:27→22:12)
[2019-04-27 09:05] VITALS: BP 136/76
[2019-04-27] MEDS: METOPROLOL TARTRATE 25MG TABLET PO SCH ×2 (09:30→22:11)
[2019-04-27] MEDS: ASPIRIN 81MG TABLET PO SCH (09:30)
[2019-04-27 11:26] LABS: BASOPHILS % 0.5 % (0.0-2.0); EOSINOPHILS % 0.7 % (0.0-5.0); HEMATOCRIT. 24.5 % (42.0-52.0); HEMOGLOBIN. 7.5 g/dL (14.0-18.0); LYMPHOCYTES % 9.9 % (20.0-50.0); MEAN CORPUSCULAR HEMOGLOBIN 22.8 pg (28.0-32.0); MEAN CORPUSCULAR VOLUME 74.8 fL (80.0-94.0); MEAN PLATELET VOLUME 7.1 fl (7.4-10.4); NEUTROPHILS % 81.9 % (40.0-76.0); PLATELET 578 x1000/uL (130-400); RED BLOOD CELL COUNT 3.27 mill/uL (4.7-6.1); RED CELL DISTRIBUTION WIDTH 18.9 % (11.6-14.6)
[2019-04-27 12:06] VITALS: BP 128/73
[2019-04-27 13:55] LABS: CHLORIDE 109 mEq/L (98-107)
[2019-04-27 14:09] LABS: TOTAL IRON BINDING CAPACITY 266 ug/dL (250-450)
[2019-04-27 14:12] LABS: PHOSPHORUS 4.4 mg/dL (2.5-4.9)
[2019-04-27 16:04] VITALS: BP 127/62
[2019-04-27] MEDS: DIGOXIN 125MCG TABLET PO SCH (16:53)
[2019-04-27 20:00] VITALS: BP 148/82
[2019-04-27] MEDS: QUETIAPINE FUMARATE 25MG TABLET PO SCH (22:11)
[2019-04-27] MEDS: ACETAMINOPHEN 650MG/20.3ML UDC GT PRN (22:12)
[2019-04-28] VITALS: BP 128/60
[2019-04-28] MEDS: MEROPENEM 500 MG in SODIUM CHLORIDE 0.9% 50 ML IV SCH ×4 (01:06→23:00)
[2019-04-28 04:00] VITALS: BP 129/72
[2019-04-28] MEDS: SODIUM CHLORIDE 0.9% INJ 3ML FLUSH IVF SCH ×3 (05:53→21:03)
[2019-04-28] MEDS: SODIUM CHLORIDE 0.9% 1,000 ML IV SCH ×2 (05:53→06:47)
[2019-04-28 07:53] LABS: BASOPHILS % 0.3 % (0.0-2.0); HEMATOCRIT. 22.3 % (42.0-52.0); LYMPHOCYTES % 11.7 % (20.0-50.0); MEAN CORPUSCULAR HEMOGLOBIN 23.1 pg (28.0-32.0); MEAN CORPUSCULAR VOLUME 74.1 fL (80.0-94.0); MEAN PLATELET VOLUME 6.6 fl (7.4-10.4); PLATELET 541 x1000/uL (130-400); RED CELL DISTRIBUTION WIDTH 18.7 % (11.6-14.6)
[2019-04-28 08:00] VITALS: BP 147/82
[2019-04-28 08:00] LABS: HEMOGLOBIN. 6.9 g/dL (14.0-18.0)
[2019-04-28 08:01] LABS: CHLORIDE 113 mEq/L (98-107)
[2019-04-28] MEDS: METOPROLOL TARTRATE 25MG TABLET PO SCH ×2 (08:25→21:03)
[2019-04-28] MEDS: ASPIRIN 81MG TABLET PO SCH (08:25)
[2019-04-28] MEDS: SODIUM CHLORIDE 0.45% 1,000 ML IV SCH ×2 (11:09→17:18)
[2019-04-28 12:00] VITALS: BP 136/89
[2019-04-28 16:00] VITALS: BP 165/84
[2019-04-28] MEDS: DIGOXIN 125MCG TABLET PO SCH (17:17)
[2019-04-28 20:00] VITALS: BP 149/89
[2019-04-28] MEDS: QUETIAPINE FUMARATE 25MG TABLET PO SCH (21:03)
[2019-04-29] VITALS (11 sets, daily range): BP systolic 137–161; BP diastolic 73–94
[2019-04-29] MEDS: SODIUM CHLORIDE 0.45% 1,000 ML IV SCH ×2 (00:59→09:19)
[2019-04-29] MEDS: SODIUM CHLORIDE 0.9% INJ 3ML FLUSH IVF SCH ×3 (05:22→21:38)
[2019-04-29 07:58] LABS: PHOSPHORUS 4.8 mg/dL (2.5-4.9)
[2019-04-29] MEDS: MEROPENEM 500 MG in SODIUM CHLORIDE 0.9% 50 ML IV SCH (08:00)
[2019-04-29 08:59] LABS: BASOPHILS % 0.6 % (0.0-2.0); EOSINOPHILS % 2.1 % (0.0-5.0); HEMATOCRIT. 22.7 % (42.0-52.0); LYMPHOCYTES % 15.3 % (20.0-50.0); MEAN CORPUSCULAR HEMOGLOBIN 22.6 pg (28.0-32.0); MEAN CORPUSCULAR VOLUME 74.7 fL (80.0-94.0); MONOCYTES % 7.2 % (2.0-8.0); NEUTROPHILS % 74.8 % (40.0-76.0); PLATELET 582 x1000/uL (130-400); RED BLOOD CELL COUNT 3.04 mill/uL (4.7-6.1); RED CELL DISTRIBUTION WIDTH 18.7 % (11.6-14.6)
[2019-04-29 09:09] LABS: HEMOGLOBIN. 6.9 g/dL (14.0-18.0)
[2019-04-29] MEDS: METOPROLOL TARTRATE 25MG TABLET PO SCH (09:19)
[2019-04-29] MEDS: ASPIRIN 81MG TABLET PO SCH (09:19)
[2019-04-29] MEDS ORDERED: LIDOCAINE HCL 1% 20ML VIAL (Pyxis) INJ ONE ×2 (09:28→11:56)
[2019-04-29] MEDS ORDERED: SODIUM BICARBONATE 4% (2.4MEQ) 5ML VIAL IV ONE (11:56)
[2019-04-29] MEDS: DIGOXIN 125MCG TABLET PO SCH (18:23)
[2019-04-29 20:38] LABS: BASOPHILS % 0.5 % (0.0-2.0); EOSINOPHILS % 1.9 % (0.0-5.0); HEMATOCRIT. 22.3 % (42.0-52.0); HEMOGLOBIN. 7.1 g/dL (14.0-18.0); LYMPHOCYTES % 16.8 % (20.0-50.0); MEAN PLATELET VOLUME 6.6 fl (7.4-10.4); MONOCYTES % 10.1 % (2.0-8.0); NEUTROPHILS % 70.7 % (40.0-76.0); PLATELET 535 x1000/uL (130-400); RED BLOOD CELL COUNT 2.97 mill/uL (4.7-6.1); RED CELL DISTRIBUTION WIDTH 18.7 % (11.6-14.6)
[2019-04-29] MEDS: QUETIAPINE FUMARATE 25MG TABLET PO SCH (21:38)
[2019-04-29] MEDS: METOPROLOL TARTRATE 50MG TABLET PO SCH (21:38)
[2019-04-29] MEDS: IRON SUCROSE COMPLEX 100 MG/5 ML ML IV SCH (22:01)
[2019-04-30] VITALS: BP 153/84
[2019-04-30] MEDS: MEROPENEM 500 MG in SODIUM CHLORIDE 0.9% 50 ML IV SCH ×3 (01:22→16:05)
[2019-04-30 04:00] VITALS: BP 152/84
[2019-04-30] MEDS: SODIUM CHLORIDE 0.9% INJ 3ML FLUSH IVF SCH ×3 (05:29→21:12)
[2019-04-30 07:30] LABS: BASOPHILS % 0.6 % (0.0-2.0); EOSINOPHILS % 1.4 % (0.0-5.0); HEMATOCRIT. 23.5 % (42.0-52.0); HEMOGLOBIN. 7.4 g/dL (14.0-18.0); LYMPHOCYTES % 13.3 % (20.0-50.0); MEAN CORPUSCULAR HEMOGLOBIN 23.5 pg (28.0-32.0); MEAN CORPUSCULAR VOLUME 75.1 fL (80.0-94.0); MEAN PLATELET VOLUME 6.9 fl (7.4-10.4); MONOCYTES % 9.3 % (2.0-8.0); NEUTROPHILS % 75.4 % (40.0-76.0); PLATELET 540 x1000/uL (130-400); RED BLOOD CELL COUNT 3.13 mill/uL (4.7-6.1); RED CELL DISTRIBUTION WIDTH 19.1 % (11.6-14.6)
[2019-04-30 07:59] LABS: PHOSPHORUS 4.9 mg/dL (2.5-4.9)
[2019-04-30 08:00] VITALS: BP 180/96
[2019-04-30] MEDS: IRON SUCROSE COMPLEX 100 MG/5 ML ML IV SCH (08:01)
[2019-04-30] MEDS: ASPIRIN 81MG TABLET PO SCH (08:02)
[2019-04-30] MEDS: METOPROLOL TARTRATE 50MG TABLET PO SCH (08:02)
[2019-04-30 08:15] LABS: DIGOXIN 0.9 ng/mL (0.9-2.0)
[2019-04-30 12:00] VITALS: BP 159/92
[2019-04-30] MEDS: DEXTROSE 5% WATER 1,000 ML IV SCH (12:28)
[2019-04-30 16:00] VITALS: BP 168/89
[2019-04-30] MEDS: DIGOXIN 125MCG TABLET PO SCH (17:47)
[2019-04-30 20:00] VITALS: BP 183/103
[2019-04-30] MEDS: METOPROLOL TARTRATE 100MG TABLET PO SCH (21:11)
[2019-04-30] MEDS: QUETIAPINE FUMARATE 25MG TABLET PO SCH (21:11)
[2019-05-01] VITALS: BP 175/107
[2019-05-01] MEDS: MEROPENEM 500 MG in SODIUM CHLORIDE 0.9% 50 ML IV SCH ×4 (00:19→23:53)
[2019-05-01 04:00] VITALS: BP 172/103
[2019-05-01] MEDS: CLONIDINE 0.1MG TABLET PO PRN ×2 (04:59→13:26)
[2019-05-01] MEDS: SODIUM CHLORIDE 0.9% INJ 3ML FLUSH IVF SCH ×2 (05:13→14:00)
[2019-05-01 07:03] LABS: BASOPHILS % 0.5 % (0.0-2.0); EOSINOPHILS % 1.9 % (0.0-5.0); HEMATOCRIT. 22.9 % (42.0-52.0); HEMOGLOBIN. 7.1 g/dL (14.0-18.0); LYMPHOCYTES % 10.8 % (20.0-50.0); MEAN CORPUSCULAR HEMOGLOBIN 23.4 pg (28.0-32.0); MEAN CORPUSCULAR VOLUME 74.9 fL (80.0-94.0); MEAN PLATELET VOLUME 6.9 fl (7.4-10.4); MONOCYTES % 7.3 % (2.0-8.0); NEUTROPHILS % 79.5 % (40.0-76.0); PLATELET 485 x1000/uL (130-400); RED BLOOD CELL COUNT 3.05 mill/uL (4.7-6.1); RED CELL DISTRIBUTION WIDTH 18.8 % (11.6-14.6)
[2019-05-01 08:00] VITALS: BP 170/103
[2019-05-01 08:03] LABS: PHOSPHORUS 4.7 mg/dL (2.5-4.9)
[2019-05-01] MEDS: ASPIRIN 81MG TABLET PO SCH (09:11)
[2019-05-01] MEDS: METOPROLOL TARTRATE 100MG TABLET PO SCH ×2 (09:12→20:21)
[2019-05-01] MEDS: IRON SUCROSE COMPLEX 100 MG/5 ML ML IV SCH (09:12)
[2019-05-01 12:00] VITALS: BP 171/97
[2019-05-01] MEDS: AMLODIPINE 5MG TABLET PO SCH (16:06)
[2019-05-01 16:12] VITALS: BP_SYST 140; BP_DIAS 101; BP_DIAS 97
[2019-05-01] MEDS: DIGOXIN 125MCG TABLET PO SCH (16:54)
[2019-05-01] MEDS ORDERED: MAGNESIUM 2 G PREMIX 50 ML IV NR (17:00)
[2019-05-01 20:00] VITALS: BP 153/93
[2019-05-01] MEDS: DEXTROSE 5% WATER 1,000 ML IV SCH (20:19)
[2019-05-01] MEDS: QUETIAPINE FUMARATE 25MG TABLET PO SCH (20:21)
[2019-05-02] VITALS: BP 147/88
[2019-05-02 04:00] VITALS: BP 162/92
[2019-05-02] MEDS: CLONIDINE 0.1MG TABLET PO PRN (06:40)
[2019-05-02 07:02] LABS: BASOPHILS % 0.7 % (0.0-2.0); EOSINOPHILS % 2.1 % (0.0-5.0); LYMPHOCYTES % 10.6 % (20.0-50.0); MEAN CORPUSCULAR HEMOGLOBIN 23.7 pg (28.0-32.0); MEAN CORPUSCULAR VOLUME 74.4 fL (80.0-94.0); MEAN PLATELET VOLUME 6.9 fl (7.4-10.4); MONOCYTES % 8.3 % (2.0-8.0); NEUTROPHILS % 78.3 % (40.0-76.0); PLATELET 490 x1000/uL (130-400); RED BLOOD CELL COUNT 2.82 mill/uL (4.7-6.1)
[2019-05-02 07:49] LABS: HEMOGLOBIN. 6.7 g/dL (14.0-18.0)
[2019-05-02] MEDS: MEROPENEM 500 MG in SODIUM CHLORIDE 0.9% 50 ML IV SCH ×2 (08:48→16:00)
[2019-05-02] MEDS: AMLODIPINE 5MG TABLET PO SCH (08:53)
[2019-05-02] MEDS: ASPIRIN 81MG TABLET PO SCH (08:53)
[2019-05-02] MEDS: METOPROLOL TARTRATE 100MG TABLET PO SCH ×2 (08:53→20:41)
[2019-05-02 12:16] LABS: HEMATOCRIT 23.2 % (42.0-52.0); HEMOGLOBIN 7.4 g/dL (14.0-18.0)
[2019-05-02] MEDS: DIGOXIN 125MCG TABLET PO SCH (18:19)
[2019-05-02 20:00] VITALS: BP 137/75
[2019-05-02] MEDS: QUETIAPINE FUMARATE 25MG TABLET PO SCH (20:40)
[2019-05-03] VITALS: BP 156/87
[2019-05-03] MEDS: DEXTROSE 5% WATER 1,000 ML IV SCH ×2 (01:41→21:42)
[2019-05-03] MEDS: MEROPENEM 500 MG in SODIUM CHLORIDE 0.9% 50 ML IV SCH ×3 (01:41→15:56)
[2019-05-03 04:00] VITALS: BP 160/85
[2019-05-03 08:00] VITALS: BP 163/92
[2019-05-03] MEDS: AMLODIPINE 5MG TABLET PO SCH (08:57)
[2019-05-03] MEDS: ASPIRIN 81MG TABLET PO SCH (08:57)
[2019-05-03] MEDS: METOPROLOL TARTRATE 100MG TABLET PO SCH ×2 (08:57→21:41)
[2019-05-03 12:00] VITALS: BP 142/80
[2019-05-03 16:00] VITALS: BP 158/89
[2019-05-03] MEDS: DIGOXIN 125MCG TABLET PO SCH (17:11)
[2019-05-03 20:00] VITALS: BP 154/86
[2019-05-03] MEDS: QUETIAPINE FUMARATE 25MG TABLET PO SCH (21:41)
[2019-05-04] VITALS (11 sets, daily range): BP systolic 122–163; BP diastolic 75–93
[2019-05-04] MEDS: MEROPENEM 500 MG in SODIUM CHLORIDE 0.9% 50 ML IV SCH ×3 (00:25→17:25)
[2019-05-04 06:49] LABS: BASOPHILS % 0.7 % (0.0-2.0); EOSINOPHILS % 2.9 % (0.0-5.0); HEMATOCRIT. 21.1 % (42.0-52.0); LYMPHOCYTES % 15.6 % (20.0-50.0); MEAN CORPUSCULAR HEMOGLOBIN 24.1 pg (28.0-32.0); MEAN CORPUSCULAR VOLUME 75.2 fL (80.0-94.0); MEAN PLATELET VOLUME 6.9 fl (7.4-10.4); MONOCYTES % 9.5 % (2.0-8.0); NEUTROPHILS % 71.3 % (40.0-76.0); PLATELET 513 x1000/uL (130-400); RED BLOOD CELL COUNT 2.81 mill/uL (4.7-6.1); RED CELL DISTRIBUTION WIDTH 19.2 % (11.6-14.6)
[2019-05-04 07:39] LABS: HEMOGLOBIN. 6.8 g/dL (14.0-18.0)
[2019-05-04 07:50] LABS: PHOSPHORUS 4.7 mg/dL (2.5-4.9)
[2019-05-04] MEDS: AMLODIPINE 10MG TABLET PO SCH (08:50)
[2019-05-04] MEDS: ASPIRIN 81MG TABLET PO SCH (08:50)
[2019-05-04] MEDS: METOPROLOL TARTRATE 100MG TABLET PO SCH ×2 (08:51→22:33)
[2019-05-04] MEDS ORDERED: MAGNESIUM 2 G PREMIX 50 ML IV SCH (10:00)
[2019-05-04] MEDS: CLONIDINE 0.1MG TABLET PO PRN (13:44)
[2019-05-04] MEDS: DIGOXIN 125MCG TABLET PO SCH (17:25)
[2019-05-04 18:58] LABS: HEMATOCRIT 27.4 % (42.0-52.0); HEMOGLOBIN 8.6 g/dL (14.0-18.0)
[2019-05-04] MEDS: QUETIAPINE FUMARATE 25MG TABLET PO SCH (22:33)
[2019-05-04] MEDS: DEXTROSE 5% WATER 1,000 ML IV SCH (22:33)
[2019-05-05] VITALS: BP 153/93
[2019-05-05] MEDS: MEROPENEM 500 MG in SODIUM CHLORIDE 0.9% 50 ML IV SCH ×3 (00:40→16:57)
[2019-05-05 04:00] VITALS: BP 142/83
[2019-05-05 08:00] VITALS: BP 138/85
[2019-05-05] MEDS: METOPROLOL TARTRATE 100MG TABLET PO SCH ×2 (08:44→21:08)
[2019-05-05] MEDS: AMLODIPINE 10MG TABLET PO SCH (08:44)
[2019-05-05 12:00] VITALS: BP 137/77
[2019-05-05 16:00] VITALS: BP 150/83
[2019-05-05] MEDS: DIGOXIN 125MCG TABLET PO SCH (17:01)
[2019-05-05 20:00] VITALS: BP 167/73
[2019-05-05] MEDS: QUETIAPINE FUMARATE 25MG TABLET PO SCH (21:07)
[2019-05-06] VITALS: BP 146/74
[2019-05-06] MEDS: MEROPENEM 500 MG in SODIUM CHLORIDE 0.9% 50 ML IV SCH ×4 (00:57→23:55)
[2019-05-06 04:00] VITALS: BP 143/86
[2019-05-06 07:51] LABS: BASOPHILS % 0.8 % (0.0-2.0); EOSINOPHILS % 2.3 % (0.0-5.0); HEMATOCRIT. 23.9 % (42.0-52.0); HEMOGLOBIN. 7.5 g/dL (14.0-18.0); LYMPHOCYTES % 20.5 % (20.0-50.0); MEAN CORPUSCULAR VOLUME 76.8 fL (80.0-94.0); MEAN PLATELET VOLUME 7.2 fl (7.4-10.4); MONOCYTES % 8.8 % (2.0-8.0); NEUTROPHILS % 67.6 % (40.0-76.0); PLATELET 475 x1000/uL (130-400); RED BLOOD CELL COUNT 3.11 mill/uL (4.7-6.1)
[2019-05-06 07:58] LABS: CHLORIDE 106 mEq/L (98-107)
[2019-05-06 08:07] LABS: PHOSPHORUS 4.1 mg/dL (2.5-4.9)
[2019-05-06] MEDS ORDERED: POTASSIUM CHLORIDE 20MEQ TABLET SR PO NR (08:45)
[2019-05-06] MEDS: METOPROLOL TARTRATE 100MG TABLET PO SCH ×2 (08:59→20:38)
[2019-05-06] MEDS: AMLODIPINE 10MG TABLET PO SCH (08:59)
[2019-05-06] MEDS ORDERED: MAGNESIUM 4 G PREMIX 100 ML IV SCH (10:00)
[2019-05-06 12:00] VITALS: BP 137/78
[2019-05-06 16:00] VITALS: BP 142/76
[2019-05-06] MEDS: DIGOXIN 125MCG TABLET PO SCH (17:35)
[2019-05-06 20:00] VITALS: BP 135/76
[2019-05-06] MEDS: QUETIAPINE FUMARATE 25MG TABLET PO SCH (20:38)
[2019-05-07] VITALS: BP 119/74
[2019-05-07 04:00] VITALS: BP 154/91
[2019-05-07 08:00] VITALS: BP 141/81
[2019-05-07] MEDS: AMLODIPINE 10MG TABLET PO SCH (08:58)
[2019-05-07] MEDS: MEROPENEM 500 MG in SODIUM CHLORIDE 0.9% 50 ML IV SCH ×3 (08:58→23:04)
[2019-05-07] MEDS: METOPROLOL TARTRATE 100MG TABLET PO SCH ×2 (08:58→20:41)
[2019-05-07 12:00] VITALS: BP 139/85
[2019-05-07 16:00] VITALS: BP 127/75
[2019-05-07] MEDS: DIGOXIN 125MCG TABLET PO SCH (17:05)
[2019-05-07 20:00] VITALS: BP 141/76
[2019-05-07] MEDS: QUETIAPINE FUMARATE 25MG TABLET PO SCH (20:41)
[2019-05-08] VITALS: BP 141/86
[2019-05-08 04:00] VITALS: BP 150/86
[2019-05-08 08:00] VITALS: BP 151/87
[2019-05-08 08:07] LABS: BASOPHILS % 0.8 % (0.0-2.0); EOSINOPHILS % 2.5 % (0.0-5.0); HEMATOCRIT. 24.6 % (42.0-52.0); HEMOGLOBIN. 7.9 g/dL (14.0-18.0); LYMPHOCYTES % 18.1 % (20.0-50.0); MEAN CORPUSCULAR HEMOGLOBIN 24.8 pg (28.0-32.0); MEAN CORPUSCULAR VOLUME 77.3 fL (80.0-94.0); MONOCYTES % 8.6 % (2.0-8.0); PLATELET 463 x1000/uL (130-400); RED BLOOD CELL COUNT 3.19 mill/uL (4.7-6.1); RED CELL DISTRIBUTION WIDTH 20.5 % (11.6-14.6)
[2019-05-08] MEDS: MEROPENEM 500 MG in SODIUM CHLORIDE 0.9% 50 ML IV SCH ×2 (08:27→17:01)
[2019-05-08] MEDS: METOPROLOL TARTRATE 100MG TABLET PO SCH ×2 (08:27→21:46)
[2019-05-08] MEDS: AMLODIPINE 10MG TABLET PO SCH (08:27)
[2019-05-08 08:57] LABS: CHLORIDE 105 mEq/L (98-107)
[2019-05-08 09:05] LABS: PHOSPHORUS 4.1 mg/dL (2.5-4.9)
[2019-05-08] MEDS ORDERED: MAGNESIUM 2 G PREMIX 50 ML IV NR (10:00)
[2019-05-08 12:00] VITALS: BP 139/81
[2019-05-08] MEDS: LOSARTAN POTASSIUM 50 MG TABLET PO SCH (14:14)
[2019-05-08] MEDS: MAGNESIUM OXIDE 400MG TABLET PO SCH ×2 (14:14→17:02)
[2019-05-08 16:00] VITALS: BP 142/85
[2019-05-08] MEDS: DIGOXIN 125MCG TABLET PO SCH (17:02)
[2019-05-08 20:00] VITALS: BP 126/76
[2019-05-08] MEDS: QUETIAPINE FUMARATE 25MG TABLET PO SCH (21:46)
[2019-05-09 04:00] VITALS: BP 140/79
[2019-05-09] MEDS: MEROPENEM 500 MG in SODIUM CHLORIDE 0.9% 50 ML IV SCH ×4 (05:52→23:54)
[2019-05-09 08:00] VITALS: BP 138/80
[2019-05-09] MEDS: AMLODIPINE 10MG TABLET PO SCH (08:56)
[2019-05-09] MEDS: LOSARTAN POTASSIUM 50 MG TABLET PO SCH (08:57)
[2019-05-09] MEDS: METOPROLOL TARTRATE 100MG TABLET PO SCH ×2 (08:57→20:36)
[2019-05-09] MEDS: MAGNESIUM OXIDE 400MG TABLET PO SCH ×2 (08:57→17:00)
[2019-05-09 12:00] VITALS: BP 127/83
[2019-05-09 16:00] VITALS: BP 138/81
[2019-05-09] MEDS: DIGOXIN 125MCG TABLET PO SCH (17:00)
[2019-05-09 20:00] VITALS: BP 110/67
[2019-05-09] MEDS: QUETIAPINE FUMARATE 25MG TABLET PO SCH (20:36)
[2019-05-10] VITALS: BP 107/64
[2019-05-10 04:00] VITALS: BP_SYST 126; BP_SYST 143; BP_DIAS 102; BP_DIAS 77
[2019-05-10 08:00] VITALS: BP 121/74
[2019-05-10] MEDS: MEROPENEM 500 MG in SODIUM CHLORIDE 0.9% 50 ML IV SCH ×2 (08:03→16:43)
[2019-05-10] MEDS: MAGNESIUM OXIDE 400MG TABLET PO SCH ×3 (08:12→16:44)
[2019-05-10] MEDS: LOSARTAN POTASSIUM 50 MG TABLET PO SCH (08:12)
[2019-05-10] MEDS: AMLODIPINE 10MG TABLET PO SCH (08:13)
[2019-05-10] MEDS: METOPROLOL TARTRATE 100MG TABLET PO SCH ×2 (08:13→21:09)
[2019-05-10 08:15] LABS: BASOPHILS % 0.6 % (0.0-2.0); HEMATOCRIT. 28.9 % (42.0-52.0); LYMPHOCYTES % 15.6 % (20.0-50.0); MEAN CORPUSCULAR HEMOGLOBIN 24.4 pg (28.0-32.0); MEAN CORPUSCULAR VOLUME 78.4 fL (80.0-94.0); MEAN PLATELET VOLUME 7.9 fl (7.4-10.4); MONOCYTES % 8.6 % (2.0-8.0); NEUTROPHILS % 73.2 % (40.0-76.0); PLATELET 352 x1000/uL (130-400); RED BLOOD CELL COUNT 3.68 mill/uL (4.7-6.1); RED CELL DISTRIBUTION WIDTH 21.3 % (11.6-14.6)
[2019-05-10 08:55] LABS: CHLORIDE 105 mEq/L (98-107)
[2019-05-10] MEDS ORDERED: MAGNESIUM 4 G PREMIX 100 ML IV SCH (11:00)
[2019-05-10 12:00] VITALS: BP 114/68
[2019-05-10 16:00] VITALS: BP 129/78
[2019-05-10] MEDS: DIGOXIN 125MCG TABLET PO SCH (17:00)
[2019-05-10 20:00] VITALS: BP 124/76
[2019-05-10] MEDS: QUETIAPINE FUMARATE 25MG TABLET PO SCH (21:09)
[2019-05-11] VITALS: BP 112/69
[2019-05-11] MEDS: MEROPENEM 500 MG in SODIUM CHLORIDE 0.9% 50 ML IV SCH ×3 (00:22→15:25)
[2019-05-11 04:00] VITALS: BP 118/66
[2019-05-11 08:00] VITALS: BP 125/66
[2019-05-11] MEDS: LOSARTAN POTASSIUM 50 MG TABLET PO SCH (08:34)
[2019-05-11] MEDS: MAGNESIUM OXIDE 400MG TABLET PO SCH ×2 (08:34→17:37)
[2019-05-11] MEDS: METOPROLOL TARTRATE 100MG TABLET PO SCH ×2 (08:36→21:20)
[2019-05-11] MEDS: AMLODIPINE 10MG TABLET PO SCH (08:37)
[2019-05-11 12:00] VITALS: BP_SYST 113; BP_SYST 124; BP_DIAS 66; BP_DIAS 73
[2019-05-11 16:00] VITALS: BP 124/66
[2019-05-11] MEDS: DIGOXIN 125MCG TABLET PO SCH (17:37)
[2019-05-11 20:00] VITALS: BP 125/83
[2019-05-11] MEDS: QUETIAPINE FUMARATE 25MG TABLET PO SCH (21:20)
[2019-05-12] VITALS: BP 115/68
[2019-05-12] MEDS: MEROPENEM 500 MG in SODIUM CHLORIDE 0.9% 50 ML IV SCH ×4 (00:30→23:56)
[2019-05-12 04:00] VITALS: BP 117/64
[2019-05-12 06:11] LABS: EOSINOPHILS % 1.8 % (0.0-5.0); HEMATOCRIT. 22.8 % (42.0-52.0); HEMOGLOBIN. 7.3 g/dL (14.0-18.0); LYMPHOCYTES % 19.2 % (20.0-50.0); MEAN CORPUSCULAR HEMOGLOBIN 24.6 pg (28.0-32.0); MEAN CORPUSCULAR VOLUME 77.1 fL (80.0-94.0); MEAN PLATELET VOLUME 7.4 fl (7.4-10.4); MONOCYTES % 9.8 % (2.0-8.0); NEUTROPHILS % 68.2 % (40.0-76.0); PLATELET 348 x1000/uL (130-400); RED BLOOD CELL COUNT 2.95 mill/uL (4.7-6.1); RED CELL DISTRIBUTION WIDTH 21.6 % (11.6-14.6)
[2019-05-12 06:19] LABS: CHLORIDE 104 mEq/L (98-107)
[2019-05-12 06:28] LABS: PHOSPHORUS 4.2 mg/dL (2.5-4.9)
[2019-05-12 08:00] VITALS: BP 124/75
[2019-05-12] MEDS: MAGNESIUM OXIDE 400MG TABLET PO SCH ×3 (08:11→17:04)
[2019-05-12] MEDS: LOSARTAN POTASSIUM 50 MG TABLET PO SCH (08:11)
[2019-05-12] MEDS: METOPROLOL TARTRATE 100MG TABLET PO SCH ×2 (08:12→20:15)
[2019-05-12] MEDS: AMLODIPINE 10MG TABLET PO SCH (08:12)
[2019-05-12] MEDS ORDERED: MAGNESIUM 2 G PREMIX 50 ML IV SCH (09:00)
[2019-05-12] MEDS ORDERED: AMLODIPINE 5MG TABLET PO SCH (09:00)
[2019-05-12 12:00] VITALS: BP 102/63
[2019-05-12 16:00] VITALS: BP 122/76
[2019-05-12] MEDS: DIGOXIN 125MCG TABLET PO SCH (17:04)
[2019-05-12 20:00] VITALS: BP 116/63
[2019-05-12] MEDS: QUETIAPINE FUMARATE 25MG TABLET PO SCH (20:13)
[2019-05-13] VITALS: BP 116/63
[2019-05-13 04:00] VITALS: BP 113/71
[2019-05-13 08:00] VITALS: BP 115/74
[2019-05-13] MEDS: MAGNESIUM OXIDE 400MG TABLET PO SCH ×2 (09:34→17:43)
[2019-05-13] MEDS: MEROPENEM 500 MG in SODIUM CHLORIDE 0.9% 50 ML IV SCH ×2 (09:34→17:43)
[2019-05-13] MEDS: LOSARTAN POTASSIUM 50 MG TABLET PO SCH (09:35)
[2019-05-13] MEDS: METOPROLOL TARTRATE 100MG TABLET PO SCH ×2 (09:35→21:00)
[2019-05-13 12:00] VITALS: BP 115/62
[2019-05-13 16:00] VITALS: BP 115/65
[2019-05-13] MEDS: DIGOXIN 125MCG TABLET PO SCH (17:43)
[2019-05-13 20:00] VITALS: BP 105/63
[2019-05-13] MEDS: QUETIAPINE FUMARATE 25MG TABLET PO SCH (20:50)
[2019-05-14] VITALS: BP 114/66
[2019-05-14] MEDS: MEROPENEM 500 MG in SODIUM CHLORIDE 0.9% 50 ML IV SCH ×2 (01:06→08:31)
[2019-05-14 04:00] VITALS: BP 118/74
[2019-05-14 07:43] LABS: BASOPHILS % 0.9 % (0.0-2.0); EOSINOPHILS % 1.9 % (0.0-5.0); HEMATOCRIT. 23.9 % (42.0-52.0); HEMOGLOBIN. 7.6 g/dL (14.0-18.0); LYMPHOCYTES % 17.6 % (20.0-50.0); MEAN CORPUSCULAR HEMOGLOBIN 24.8 pg (28.0-32.0); MEAN CORPUSCULAR VOLUME 78.2 fL (80.0-94.0); MONOCYTES % 10.5 % (2.0-8.0); NEUTROPHILS % 69.1 % (40.0-76.0); PLATELET 336 x1000/uL (130-400); RED BLOOD CELL COUNT 3.06 mill/uL (4.7-6.1); RED CELL DISTRIBUTION WIDTH 22.6 % (11.6-14.6)
[2019-05-14 08:00] VITALS: BP 120/77
[2019-05-14 08:02] LABS: CHLORIDE 103 mEq/L (98-107)
[2019-05-14 08:08] LABS: PHOSPHORUS 4.7 mg/dL (2.5-4.9)
[2019-05-14] MEDS: METOPROLOL TARTRATE 100MG TABLET PO SCH (08:30)
[2019-05-14] MEDS: LOSARTAN POTASSIUM 50 MG TABLET PO SCH (08:30)
[2019-05-14] MEDS: MAGNESIUM OXIDE 400MG TABLET PO SCH (08:30)
[2019-05-14 12:00] VITALS: BP 108/69
[2019-05-14 12:28] VITALS: BP 108/69
[2019-05-14] MEDS ORDERED: MAGNESIUM 2 G PREMIX 50 ML IV NR (15:00)
== END 2019-05-14 13:40 | disposition home or self-care (01) | DRG 720 ==
LOC: ER 13:07 → 5EST 15:39 → EDBEDREQ 15:48 → EDBEDREQTM 15:48 → ENRESERV 04-02 07:41 → 6EST 04-08 12:45 → 6WST 04-16 22:16 → 6EST 04-29 10:23
PROVIDERS: ADMIT Family Medicine; ATTEND Family Medicine
PROC: 30233N1 Transfusion of Nonautologous Red Blood Cells into Peripheral Vein, Percutaneous Approach (ICD-10-PCS; 2019-04-16)
PROC: 02HV33Z Insertion of Infusion Device into Superior Vena Cava, Percutaneous Approach (ICD-10-PCS; principal; 2019-04-29)
PROC: B548ZZA Ultrasonography of Superior Vena Cava, Guidance (ICD-10-PCS; 2019-04-29)
DX: A41.9 Sepsis, unspecified organism (principal); E43 Unspecified severe protein-calorie malnutrition; I96 Gangrene, not elsewhere classified; N17.9 Acute kidney failure, unspecified; E87.0 Hyperosmolality and hypernatremia; D64.9 Anemia, unspecified; F10.10 Alcohol abuse, uncomplicated; L03.115 Cellulitis of right lower limb; L03.116 Cellulitis of left lower limb; L97.919 Non-pressure chronic ulcer of unspecified part of right lower leg with unspecified severity; L97.929 Non-pressure chronic ulcer of unspecified part of left lower leg with unspecified severity; Z87.891 Personal history of nicotine dependence; Z59.0 Homelessness; E16.2 Hypoglycemia, unspecified; E83.42 Hypomagnesemia; I47.1 Supraventricular tachycardia; M17.12 Unilateral primary osteoarthritis, left knee; I73.9 Peripheral vascular disease, unspecified
CPT/HCPCS: 36415; 36573; 71045; 73590; 73700; 75635; 76770; 76937; 80048; 80053; 80061; 80076; 80162; 80202; 81003; 82962; 83540; 83550; 83605; 83735; 83880; 84100; 84134; 84145; 84484; 85014; 85018; 85025; 85027; 85651; 86850; 86900; 86920; 87070; 87077; 87186; 93005; 93970; 96365; 97110; 97116; 97162; 97530; 97535; 99285; C1725; J0696; J1160; J1200; J1650; J1815; J2185; J2270; J2405; J2543; J3370; J3475; J3490; J7030; J7042; J7060; J7070; P9016; Q9967